=== PATIENT | female | born 1990 | race American Indian/Alaskan Native ===

== ENCOUNTER 2018-11-11 01:12 | Day surgery (SDC) | payer SELFPAY ==
[2018-11-11 01:56] LABS: Basophils % (Auto) 0.3 % (0.0-1.8); Eosinophils % (Auto) 0.5 % (0.0-4.3); Hematocrit 34.4 % (30.3-42.9); Hemoglobin 11.3 gm/dl (10.1-14.3); Lymphocytes # (Auto) 2.1 K/mm3 (1.2-5.4); Lymphocytes % (Auto) 29.2 % (13.4-35.0); Mean Corpuscular HGB Conc 33 % (30-34); Mean Corpuscular Volume 90 fl (79-97); Monocytes # (Auto) 0.4 K/mm3 (0.0-0.8); Monocytes % (Auto) 5.3 % (0.0-7.3); Platelet Count 266 K/mm3 (140-440); Red Blood Count 3.83 M/mm3 (3.65-5.03); Red Cell Distribution Width 14.6 % (13.2-15.2)
[2018-11-11 02:21] LABS: Alanine Aminotransferase 17 units/L (7-56); Albumin 3.4 g/dL (3.9-5); BUN/Creatinine Ratio 18; Blood Urea Nitrogen 9 mg/dL (7-17); Calcium 8.9 mg/dL (8.4-10.2); Hemolysis Index 7
[2018-11-11] MEDS ORDERED: MORPHINE IV ONE ×2 (02:56→03:35)
[2018-11-11] MEDS ORDERED: ZOFRAN IV ONE ×2 (02:57→03:35)
--- NOTE | 2018-11-11 04:33 | Ultrasound Report ---
PROCEDURE: US OB TRANSVAGINAL TECHNIQUE: Routine transvaginal imaging was obtained of the pelvis along with Doppler interrogation of the adnexa. HISTORY: RLQ PAIN COMPARISONS: FINDINGS: The uterus is anteverted measuring 9.2 x 4.8 x 6 cm. There is no evidence of an intrauterine pregnanc y. The endometrial thickness is 1.5 cm. In the right adnexal area is a cystic structure which contains a pole corresponding to a 7 week 3 day ectopic . The heart rate within the ectopic is 162 BPM. Adjacent to t he right-sided ectopic are 2 right ovarian cysts the largest measuring 3 cm in diameter. Th ere is a moderate amount of free fluid in the pelvis. The left ovary is normal size contour and echot exture measuring 2.3 x 1.0 x 2.2 cm. IMPRESSION: Viable right adnexal ectopic , 7 weeks 3 days as described. Moderate amount of fluid in the pelvis. No evidence of associated IUP. Benign functional cysts also noted in the right ovary. The right ectopic was discussed with Dr. Mccarthy at 4:30 AM on 11/11/2018. This document is electronically signed by Júnior Varner MD., November 11 2018 05:31:37 AM ET
--- NOTE | 2018-11-11 04:37 | Ultrasound Report ---
PROCEDURE: US OB <= 14 WEEKS FETUS TECHNIQUE: Real-time transabdominal sonography of the uterus, placenta, amniotic fluid, adnexa, and fetus was performed with image documentation. Measurements were obtained to determine age/size. M-mode Doppler was used to document heartbeat. ADDITIONAL GESTATION: None. HISTORY: pain COMPARISONS: None . FINDINGS: The uterus size is 9.2 x 4.8 x 6 cm. The endometrial pattern is normal. No evidence of gestational sa c within the uterus. The left ovary size and echogenicity is normal. The right ovary size is 6.7 x 5.3 x 5.3 cm. 2 cysts are identified within the right ovary. One measur es 3 cm. A second measures 2.4 cm. Adjacent to the right ovary in the right adnexa there is a gestati onal sac with a pole. The crown-rump length of 12 mm corresponds to gestational age of approxim ately 7 weeks. Embryonic heart activity is identified on this study. This rate is 162 bpm. There is n o evidence of fluid in the lower pelvis at this time. IMPRESSION: Right adnexal ectopic with a gestational age of approximately 7 weeks. Embryoni c cardiac activity is identified at a rate of 162 bpm. There is no evidence of an intrauterine . The above findings are discussed with the patient's ER physician at the time of dictation [id number] Fredy ramses standard time on 11/11/2018 This document is electronically signed by Suyapa Paul DO., November 11 2018 05:35:36 AM ET
--- NOTE | 2018-11-11 04:38 | Emergency Department Report ---
ED Abdominal Pain HPI - General Chief Complaint: Abdominal Pain Stated Complaint: ABD PAIN Source: patient, EMS Mode of arrival: Wheelchair Limitations: No Limitations - History of Present Illness Initial Comments: Patient is a A0 28-year-old female with no past medical history who presents to the ED, an acute onset persistent severe right lower quadrant pain for the last 8 hours. Patient also complaint of persistent intermittent vaginal spotting for the last 2 weeks. Patient states that her last known menstrual cycle was 3 weeks ago but unsure. Patient denies dizziness, nausea, vomiting, fever, chills, dysuria, urinary frequency and urgency, traumatic injury, diarrhea, headache or chest pain and shortness of breath. MD Complaint: abdominal pain, other (vaginal spotting) -: Sudden, hour(s) (8) Location: RLQ Radiation: RLQ, suprapubic Migration to: RLQ, suprapubic Severity scale (0 -10): 8 Quality: cramping, aching, sharp Consistency: constant Improves With: nothing Worsens With: nothing Context: other (spontaneous) Associated Symptoms: denies other symptoms. denies: nausea, vomiting, diarrhea, fever, chills, constipation, dysuria, hematochezia, melena, hematuria, anorexia, syncope - Related Data LMP (females 10-50): other (2 weeks) Allergies Allergy/AdvReac Type Severity Reaction Status Date / Time No Known Allergies Allergy Verified 11/11/18 01:23 ED Review of Systems ROS: Stated complaint: ABD PAIN Other details as noted in HPI Comment: All other systems reviewed and negative Constitutional: no symptoms reported, see HPI. denies: diaphoresis, fever, malaise, weakness Eyes: as per HPI. denies: eye pain, vision change ENT: as per HPI. denies: ear pain, throat pain, dental pain, hearing loss, epistaxis Respiratory: no symptoms reported, see HPI. denies: cough, orthopnea, shortness of breath, SOB with exertion, SOB at rest Cardiovascular: as per HPI. denies: chest pain, palpitations, dyspnea on exertion, edema, syncope, paroxysmal nocturnal dyspnea Endocrine: no symptoms reported, see HPI. denies: excessive sweating, flushing, intolerance to cold, increased hunger, increased thirst, increased urine, unexplained weight gain Gastrointestinal: as per HPI, abdominal pain (RLQ ). denies: nausea, vomiting, diarrhea, constipation, hematemesis, hematochezia Genitourinary: as per HPI, other (vaginal bleeding). denies: urgency, dysuria, frequency, hematuria, discharge, abnormal menses, dyspareunia Musculoskeletal: as per HPI Skin: as per HPI. denies: rash, lesions, change in color, change in hair/nails Neurological: as per HPI. denies: headache, numbness, paresthesias, confusion Psychiatric: as per HPI Hematological/Lymphatic: as per HPI ED Past Medical Hx - Past Medical History Previous Medical History?: No - Surgical History Past Surgical History?: Yes Additional Surgical History: hernia. jaw. - Social History Smoking Status: Never Smoker Substance Use Type: None ED Physical Exam - General Limitations: No Limitations General appearance: alert, in no apparent distress - Head Head exam: Present: atraumatic, normocephalic, normal inspection - Eye Eye exam: Present: normal appearance, PERRL, EOMI. Absent: scleral icterus Pupils: Present: normal accommodation - ENT ENT exam: Present: normal exam, normal orophraynx, mucous membranes moist, TM's normal bilaterally, normal external ear exam - Neck Neck exam: Present: normal inspection, full ROM. Absent: tenderness, men ingismus, lymphadenopathy - Respiratory Respiratory exam: Present: normal lung sounds bilaterally. Absent: respiratory distress, wheezes, rhonchi, chest wall tenderness, accessory muscle use, decreased breath sounds, prolonged expiratory - Cardiovascular Cardiovascular Exam: Present: regular rate, normal rhythm, normal heart sounds - GI/Abdominal GI/Abdominal exam: Present: soft, tenderness (RLQ), guarding, normal bowel sounds. Absent: hyperactive bowel sounds, hypoactive bowel sounds, organomegaly, bruit, pulsatile mass - Rectal Rectal exam: Present: deferred - Extremities Exam Extremities exam: Present: normal inspection - Back Exam Back exam: Present: normal inspection, full ROM. Absent: tenderness, CVA tenderness (R), CVA tenderness (L), muscle spasm, paraspinal tenderness, vertebral tenderness - Neurological Exam Neurological exam: Present: alert, oriented X3, CN II-XII intact, normal gait, reflexes normal - Psychiatric Psychiatric exam: Present: normal affect - Skin Skin exam: Present: warm, dry, intact, normal color. Absent: cyanosis, diaphoretic, erythema ED Course Vital Signs 11/11/18 01:17 Temperature 98.6 F Respiratory 18 Rate Blood Pressure 143/82 - Reevaluation(s) Reevaluation #1: 11/11/18 04:43 Patient is alert and oriented 3 and is not in any distress but in pain, and is hemodynamically stable. Labs are drawn including urinalysis urinalysis. Preliminary tests shows a positive urine hCG . Urinalysis also shows acute urinary tract infection. Other lab test results are unremarkable except for acute hyponatremia of 133 mmol per liter. HCG Quant studies are pending. Transvaginal and pelvic ultrasound show a live ectopic in the right adnexa, approximately 7 weeks 3 days with a heart rate of 162 bpm. the MANAGER OF REGULATORY AFFAIRS physician bonderizer Dr. Cannon was paged, and he came down to the ED to the patient's room and evaluated. The findings also discussed with Dr. Bonilla the ED attending physician who agreed the plan of care. The patient was evaluated by Dr. Cannon in the room and admitted to the hospital to the OR by Dr. Cannon. 11/11/18 05:03 ED Medical Decision Making - Lab Data Result diagrams: 11/11/18 01:31 11/11/18 01:31 - Radiology Data Radiology results: report reviewed, image reviewed Live Ectopic in right adnexa of approximately 7 weeks 3 days with a FHR of 162 bpm - Medical Decision Making Patient is alert and oriented 3 and is not in any distress but in pain, and is hemodynamically stable. Labs are drawn including urinalysis urinalysis. Preliminary tests shows a positive urine hCG . Urinalysis also shows acute urinary tract infection. Other lab test results are unremarkable except for acute hyponatremia of 133 mmol per liter. HCG Quant studies are pending. Transvaginal and pelvic ultrasound show a live ectopic in the right adnexa, approximately 7 weeks 3 days with a heart rate of 162 bpm. the MANAGER OF REGULATORY AFFAIRS physician bonderizer Dr. Cannon was paged, and he came down to the ED to the patient's room and evaluated. The findings also discussed with Dr. Bonilal the ED attending physician who agreed the plan of care. The patient was evaluated by Dr. Cannon in the room and admitted to the hospital to the OR by Dr. Cannon. - Differential Diagnosis RLQ abdominal pain, Ectopic , acute appendicitis, PID Critical Care Time: Yes Critical care time in (mins) excluding proc time.: 30 Critical care attestation.: If time is entered above; I have spent that time in minutes in the direct care of this critically ill patient, excluding procedure time. Critical Care Time: 30 ED Disposition Clinical Impression: Acute abdominal pain in right lower quadrant Ectopic without intrauterine Qualifiers: Location of ectopic : tubal Laterality: right Qualified Code(s): O00.101 - Right tubal without intrauterine Disposition: 09 OP ADMIT IP TO THIS HOSP Is pt being admited?: Yes Does the pt Need Aspirin: No Condition: Stable Referrals: RENO CANNON MD [Staff Physician] - 3-5 Days Time of Disposition: 05:02 Print Language: ROMANSH
[2018-11-11 04:42] LABS: Bilirubin,Urine NEG (Negative); Blood,Urine LG (Negative); Color,Urine Yellow (Yellow); Hyaline Casts,Urine 12 /LPF; Mucus,Urine 3+ /HPF; Urobilinogen,Urine < 2.0 mg/dL (<2.0)
--- NOTE | 2018-11-11 04:59 | Short Stay Summary ---
Short Stay Documentation Date of service: 11/11/18 Narrative H&P: Patient is a 28-year-old BF LMP/ with no past medical history who presents to the ED, an acute onset persistent severe right lower quadrant pain for the last 8 hours. Patient also complaint of persistent intermittent vaginal spotting for the last 2 weeks. She denies dizziness, nausea, vomiting, fever, chills, dysuria, urinary frequency and urgency, traumatic injury, diarrhea, headache or chest pain and shortness of breath. Her Bhcg was 36,108 and H/H 11.3/34.4 Pelvic u/s showed a live right ectopic . She will therefore be admitted for a Laparoscopic salpingectomy ADRIANNE. - History Principal diagnosis: Right ectopic H&P: obtained from office Past Medical History: No medical history Past Surgical History: hernia repair, Other (jaw surgery) Social history: no significant social history, single - Allergies and Medications Current Medications: Allergies No Known Allergies Allergy (Verified 11/11/18 01:23) - Physical exam General appearance: mild distress Integumentary: no rash HEENT: Atraumatic Lungs: Clear to auscultation Breasts: deferred Heart: Regular rate Gastrointestinal: normal Female Genitourinary: deferred Rectal Exam: deferred Extremities: no ischemia, No edema Neurological: Normal speech - Brief post op/procedure progress note Date of procedure: 11/11/18 Pre-op diagnosis: 1. Pelvic pain 2. Right ectopic Post-op diagnosis: same (with hemoperitoneum) Procedure: Laparoscopic right salpingectomy Anesthesia: GETA Surgeon: RENO VAZQUEZ Estimated blood loss: 50-100ml Pathology: list (right fallopian tube) Specimen disposition: to lab Condition: stable - Hospital course Hospital course: Unremarkable - Disposition Condition at discharge: Good Disposition: DC-01 TO HOME OR SELFCARE - Discharge Diagnoses (1) Acute abdominal pain in right lower quadrant Status: Resolved (2) Ectopic without intrauterine Status: Resolved Qualifiers: Location of ectopic : tubal Laterality: right Qualified Code(s): O00.101 - Right tubal without intrauterine Short Stay Discharge Plan Activity: no restrictions Diet: regular Wound: open to air, keep clean and dry Follow up with: RENO VAZQUEZ MD [Staff Physician] - 7 Days Prescriptions: Ibuprofen [Motrin] 600 mg PO Q8H PRN #30 tablet PRN Reason: Pain HYDROcodone/APAP 5-325 [Lamont 5/325] 1 each PO Q6HR PRN #14 tablet PRN Reason: Pain
[2018-11-11] MEDS ORDERED: ZOFRAN IV PRN (05:50)
[2018-11-11] MEDS ORDERED: SUBLIMAZE IV PRN (05:50)
--- NOTE | 2018-11-11 05:50 | Anesthesia Consultation ---
Anesthesia Consult and Med Hx Date of service: 11/11/18 - Airway Anesthetic Teeth Evaluation: Good ROM Head & Neck: Adequate Mental/Hyoid Distance: Adequate Mallampati Class: Class II (prior jaw surgery ,but adequate mouth opening) Intubation Access Assessment: Good - Pulmonary Exam CTA: Yes - Cardiac Exam Cardiac Exam: RRR - Pre-Operative Health Status ASA Pre-Surgery Classification: ASA2, Emergency Proposed Anesthetic Plan: General - Pulmonary Hx Smoking: No Hx Asthma: No - Cardiovascular System Hx Hypertension: No - Gastrointestinal Hx Gastroesophageal Reflux Disease: No - Other Systems Hx Alcohol Use: No - Additional Comments Anesthesia Medical History Comments: For GA for ectopic , patient otherwise healthy , last meal was >8 hours ago .
--- NOTE | 2018-11-11 05:50 | Anesthesia Day of Surgery ---
Anesthesia Day of Surgery - Day of Surgery Patient Examined: Yes Patient H&P Reviewed: Yes Patient is NPO: Yes
[2018-11-11] MEDS ORDERED: ZOFRAN ONE (05:58)
[2018-11-11] MEDS ORDERED: SUBLIMAZE ONE (05:58)
[2018-11-11] MEDS ORDERED: TORADOL ONE (05:58)
[2018-11-11] MEDS ORDERED: XYLOCAINE MPF 2% ONE (05:58)
[2018-11-11] MEDS ORDERED: ZEMURON IV ONE (05:58)
[2018-11-11] MEDS ORDERED: DIPRIVAN 10 MG/ML IV ONE (05:58)
[2018-11-11] MEDS ORDERED: DECADRON ONE (05:58)
[2018-11-11] MEDS ORDERED: ANCEF/STERILE WATER 2 GM/20 ML 2 GM/20 ML SYRINGE IV NR (06:00)
[2018-11-11] MEDS ORDERED: LACTATED RINGERS 1,000 ML IV SCH (06:00)
[2018-11-11] MEDS ORDERED: MARCAINE 0.5% INFILTRATI ONE ×2 (06:54→07:35)
[2018-11-11] MEDS ORDERED: NACL 0.9% IR ONE (07:40)
[2018-11-11] MEDS ORDERED: ROBINUL ONE (08:01)
[2018-11-11] MEDS ORDERED: BLOXIVERZ ONE (08:01)
--- NOTE | 2018-11-11 08:31 | Operative Report ---
Operative Report Operative Report: Date of procedure: 11/11/2018 Pre-operative diagnosis: 1. Pelvic pain 2. Right ectopic Post-operative diagnosis: Same with hemoperitoneum Procedure name(s): Laparoscopic right salpingectomy Surgeon: Aldair Cannon MD Auto Bench Mechanic: None Anesthesia: Gen. endotracheal intubation EBL: 100 mL Findings: A normal uterus with a large right ectopic occupying the entire right fallopian tube, and a large right ovarian cyst. Normal left fallopian tube and ovary. Approximately 50 mL's of hemoperitoneum. Procedure: After the patient was correctly identified, she was prepped and draped in the usual sterile fashion and placed in the dorsolithotomy position. First the bladder was emptied using a straight catheter, then the speculum was placed in the vaginal vault and the anterior lip of the cervix was grasped with single-tooth tenaculum. The uterine manipulator was then placed and the tenaculum and speculum were removed. Attention was then turned to the abdomen where first a periumbilical incision was made using the skin knife, and the Optiview trocar was inserted under direct visualization. After an adequate amount of abdominal insufflation, visualization of the pelvic organs found approximately 50 mL's of hemoperitoneum and a large right adnexal mass along with a large right ovarian cyst. A suprapubic and a right lateral incision was made through which 5 mm trochars were placed in order to aid in manipulation of the pelvic organs. The right fallopian tube was grasped, clamped, cauterized and cut at the proximal portion of the tube and along the mesosalpinx, thus excising the entire right fallopian tube along with the ectopic . This was removed using the Endopouch and sent to pathology. The right ovarian cyst was drained, spilling clear fluid. Copious amounts of irrigation was then performed. Again inspection of the left fallopian tube found in normal left tube with normal left ovary. The Tisseel sealants was sprayed across the salpingectomy site, and excellent hemostasis was assured. At this point the procedure was considered complete. All instruments removed from the abdomen. The abdomen was deflated, and the periumbilical incision was closed using 0 Vicryl suture in a [id number]-bhgen configuration of the fascia, followed by 4-0 Monocryl suture in a sub-cuticular fashion on the skin. The suprapubic and right lateral incisions were closed in similar fashion. Each incision was infiltrated using 0.5% Marcaine Solution. The uterine manipulator was removed, the patient tolerated the procedure well and was transferred to recovery room in stable condition.
[2018-11-11] MEDS ORDERED: NORCO 5/325 PO PRN (08:39)
[2018-11-11 09:06] VITALS: BP 127/79
== END 2018-11-11 09:51 | disposition home or self-care (01) ==
LOC: OR 01:12 → ED 01:12 → EDSTATUS 07:40 → OR 09:51
PROVIDERS: ATTEND Obstetrics & Gynecology
DX: O00.101 Right tubal pregnancy without intrauterine pregnancy (principal); O34.80 Maternal care for other abnormalities of pelvic organs, unspecified trimester; N83.201 Unspecified ovarian cyst, right side; Z79.899 Other long term (current) drug therapy
CPT/HCPCS: 36415; 59151; 76801; 76817; 80053; 81001; 83690; 84702; 84703; 85025; 86850; 86900; 86901; 87086; 88305; 99284; C9250; J1100; J1885; J2270; J2405; J2704; J2710; J3010

== ENCOUNTER 2021-04-22 13:53 | Emergency (ER) | payer MEDICAID ==
[2021-04-22 14:40] LABS: Hematocrit 35.3 % (30.3-42.9); Hemoglobin 11.7 gm/dl (10.1-14.3); Mean Corpuscular HGB Conc 33 % (30-34); Mean Corpuscular Volume 90 fl (79-97); Platelet Count 289 K/mm3 (140-440); Red Blood Count 3.92 M/mm3 (3.65-5.03); Red Cell Distribution Width 13.9 % (13.2-15.2)
--- NOTE | 2021-04-22 14:53 | Emergency Department Report ---
ED Abdominal Pain HPI - General Chief Complaint: Abdominal Pain Stated Complaint: POSS MISCARRIAGE Time Seen by Provider: 04/22/21 14:14 Source: patient, EMS Mode of arrival: Ambulatory Limitations: No Limitations - History of Present Illness Initial Comments: Patient presented with abdominal pain and vaginal bleeding. She also reported some back pain associated with this. She did a test a couple of days ago as it was positive. She did a test today that was positive. She was concern for possible miscarriage. 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 Her last menstrual period was March 19. She has no fevers or chills. There is no bleeding from other sites. There is no dysuria or frequency. She reports some cramping lower abdominal pain and aching of back pain. The pain that she is having does not radiate or migrate Severity scale (0 -10): 4 - Related Data Previous Rx's Medication Instructions Recorded Last Taken Type HYDROcodone/APAP 5-325 [Edison 1 each PO Q6HR PRN #14 tablet 11/11/18 Unknown Rx 5/325] Ibuprofen [Motrin] 600 mg PO Q8H PRN #30 tablet 11/11/18 Unknown Rx Allergies Allergy/AdvReac Type Severity Reaction Status Date / Time No Known Allergies Allergy Verified 11/11/18 01:23 ED Review of Systems ROS: Stated complaint: POSS MISCARRIAGE Other details as noted in HPI Comment: All other systems reviewed and negative Constitutional: denies: fever Eyes: denies: vision change ENT: denies: epistaxis Respiratory: denies: cough Cardiovascular: denies: chest pain Endocrine: denies: unexplained weight loss Gastrointestinal: as per HPI Genitourinary: as per HPI Musculoskeletal: as per HPI Skin: denies: rash Neurological: denies: headache Hematological/Lymphatic: denies: easy bruising ED Past Medical Hx - Past Medical History Hx Hypertension: Yes Hx Asthma: No Additional medical history: Ectopic - Surgical History Additional Surgical History: hernia. jaw. - Family History Family history: hypertension - Social History Smoking Status: Never Smoker Substance Use Type: None - Medications Home Medications: Home Medications Medication Instructions Recorded Confirmed Last Taken Type HYDROcodone/APAP 5-325 [Edison 1 each PO Q6HR PRN #14 tablet 11/11/18 Unknown Rx 5/325] Ibuprofen [Motrin] 600 mg PO Q8H PRN #30 tablet 11/11/18 Unknown Rx ED Physical Exam - General Limitations: No Limitations, Other ( pulse ox noted and normal) General appearance: alert, in no apparent distress - Head Head exam: Present: atraumatic, normocephalic - Eye Eye exam: Present: normal appearance, EOMI - ENT ENT exam: Present: normal exam, mucous membranes moist - Neck Neck exam: Present: normal inspection. Absent: meningismus - Respiratory Respiratory exam: Present: normal lung sounds bilaterally. Absent: respiratory distress - Cardiovascular Cardiovascular Exam: Present: regular rate, normal rhythm - GI/Abdominal GI/Abdominal exam: Present: soft. Absent: tenderness - Extremities Exam Extremities exam: Present: normal capillary refill. Absent: calf tenderness - Back Exam Back exam: Absent: CVA tenderness (R), CVA tenderness (L) - Neurological Exam Neurological exam: Present: alert, oriented X3, CN II-XII intact, reflexes normal. Absent: motor sensory deficit - Psychiatric Psychiatric exam: Present: normal affect, normal mood - Skin Skin exam: Present: warm, dry ED Course Vital Signs 04/22/21 13:56 Temperature 98.6 F Pulse Rate 60 Respiratory 16 Rate Blood Pressure 144/73 [Left] O2 Sat by Pulse 98 Oximetry - Reevaluation(s) Reevaluation #1: 04/22/21 14:53 IV and labs have been ordered. Old records have been reviewed. Reevaluation #2: 04/22/21 15:57 Labs have been noted. test is pending. Reevaluation #3: 04/22/21 20:14 ultrasound is pending. ED Medical Decision Making - Lab Data Result diagrams: 04/22/21 14:30 04/22/21 14:30 - Medical Decision Making Patient presents with abdominal pain in the setting of . She was concerned for possible miscarriage. Ultrasound has been ordered. Patient does not have symptoms that would truly suggest ectopic . She does not appear to be septic or toxic. She will be treated symptomatically. Provided she does not have ectopic on ultrasound, she will be discharged with outpatient referral to gynecology. She certainly does not have peritoneal finding. There is no dysuria or CVA tenderness to suggest urinary tract infection or pyelonephritis. Critical Care Time: No Critical care attestation.: If time is entered above; I have spent that time in minutes in the direct care of this critically ill patient, excluding procedure time. ED Disposition Clinical Impression: Abdominal pain affecting Disposition: 30 STILL A PATIENT Is pt being admited?: No Condition: Stable Instructions: Abdominal Pain (ED), Abdominal Pain During , [id number] Additional Instructions: Drink plenty water. Return for problems. Follow-up with your bulb brander for recheck. Use Tylenol only for pain. Return for any problems or concerns. If you do not have a bulb brander, follow-up with the bulb brander alumni relations coordinator Referrals: MERON SINGH MD [Primary Care Provider] - 3-5 Days JENNIFER BARDALES MD [Staff Physician] - 3-5 Days
[2021-04-22 15:01] LABS: Blood Urea Nitrogen 10 mg/dL (7-17); Calcium 9.1 mg/dL (8.4-10.2); Hemolysis Index 61
[2021-04-22 15:10] LABS: BUN/Creatinine Ratio 17
--- NOTE | 2021-04-22 20:41 | Ultrasound Report ---
ULTRASOUND OBSTETRIC INDICATION / CLINICAL INFORMATION: bleeding. TECHNIQUE: Transabdominal. COMPARISON: None available. FINDINGS: GESTATIONAL SAC: Well-defined oval shape and intrauterine in location. Average gestational sac diamet er measures 1.96 cm. YOLK SAC: Not visualized EMBRYO/FETUS: No pole is identified. ADNEXA: No significant abnormality. FREE FLUID: None. ADDITIONAL FINDINGS: None. IMPRESSION: 1. Intrauterine gestational sac with estimated sonographic age of 6, 6 weeks, days. 2. No yolk sac or pole is identified at this time. Findings are favored to reflect very early i ntrauterine gestation although nonvisualized ectopic and first trimester miscarriage are also conside rations. Recommend continued sonographic and beta hCG follow-up as clinically indicated. Signer Name: Michael Toribio MD Signed: 04/22/2021 8:37 PM Workstation Name: [id number]
[2021-04-22 20:48] VITALS: BP 110/60
--- NOTE | 2021-04-24 08:19 | Ultrasound Report ---
FIRSTTRIMESTER OBSTETRIC ULTRASOUND HISTORY: Vaginal bleeding, evaluate for ectopic COMPARISON: Transabdominal OB ultrasound performed earlier today TECHNIQUE: Routine transvaginal OB ultrasound performed. FINDINGS: Uterus: Mildly enlarged measuring 9.8 x 6.8 x 6.1 cm. Gestational Sac: A single, elongated gestational sac is identified in the endometrial canal with aver age diameter measuring 2.5 cm which correlates with a 7 week 4 day . Yolk Sac: Normal in appearance. Fetus/Embryo: No convincing pole or heart rate could be demonstrated at this time. Placenta: Too small for evaluation. Amniotic fluid volume: Subjectively appropriate for gestational age. Ovaries: The right ovary is not clearly demonstrated on transvaginal ultrasound. The left ovary is un remarkable measuring 2.2 x 0.9 x 2.5 cm. Additional findings: There is trace free fluid in the cul-de-sac which appears physiologic. No obviou s adnexal mass to suggest ectopic . IMPRESSION An intrauterine gestational sac containing a yolk sac is identified. Average gestational sac diameter correlates with a 7 week 4 day . No convincing pole or cardiac activity is demo nstrated on transvaginal exam. This is concerning for a blighted ovum. Correlate with the patient's c linical presentation. Close interval follow-up is recommended. Signer Name: Aldair Mcclain Jr, MD Signed: 04/24/2021 8:15 AM Workstation Name: [id number]
== END 2021-04-22 21:35 | disposition home or self-care (01) ==
LOC: ED 13:53
DX: O26.891 Other specified pregnancy related conditions, first trimester (principal); R10.9 Unspecified abdominal pain; I10 Essential (primary) hypertension; Z3A.00 Weeks of gestation of pregnancy not specified
CPT/HCPCS: 36415; 76801; 76817; 76830; 80048; 84702; 85027; 86900; 86901; 99284